=== PATIENT | female | born 1970 | race Caucasian/White ===

== ENCOUNTER 2017-06-21 21:45 | Emergency (ER) | payer BC ==
[~2017-06-21] VITALS: Ht 165.1 cm; Wt 89.7 kg
[~2017-06-21 21:45] MED LIST: ALEVE220 MG PO; EFFEXOR XR150 MG PO; Ecotrin PO; FLEXERIL10 MG PO; LORTAB 5-325 M1 EACH PO; TYLENOL REGULA325 MG PO; Vicodin,Norco 5/325 PO; WELLBUTRIN XL150 MG PO
[2017-06-21 22:54] LABS: MCH 31.1 PG (29.0-34.0); MCHC 34.5 G/DL (30.0-36.0); MCV 90.1 FL (83-99); MEAN PLAT.VOLUME 9.7 uM^3 (9.5-12.4); PLATELET COUNT 226 K/uL (156-360); RBC DIS.WIDTH-CV 11.5 % (11.8-14.6); RBC DIS.WIDTH-SD 37.8 % (39-53); RED BLOOD COUNT 4.44 M/uL (3.80-5.20)
[2017-06-21 23:06] LABS: CHLORIDE 103 mEq/L (99-109); POTASSIUM 3.5 mEq/L (3.7-5.4); SODIUM 137 mEq/L (136-147)
[2017-06-21 23:08] LABS: GLUCOSE 104 mg/dL (70-99)
[2017-06-21 23:09] LABS: ANION GAP 9 MEQ/L (2-14)
[2017-06-21 23:10] LABS: TOTAL BILIRUBIN 0.4 mg/dL (0.0-1.0)
[2017-06-21 23:11] LABS: ALKALINE PHOSPHATASE 63 IU/L (3-129)
[2017-06-21 23:12] LABS: GFR ESTIMATE (CALCULATED) > 59 mL/min/
[2017-06-21 23:13] LABS: UREA NITROGEN (BUN) 15 mg/dL (9-23)
[2017-06-21 23:15] LABS: LIPASE 19 U/L (1.0-51.0)
[2017-06-21 23:27] LABS: ADD MIUA? YES; BILIRUBIN NEGATIVE; BLOOD MODERATE; COLOR YELLOW ((YELLOW)); GLUCOSE (STRIP) NEGATIVE; KETONES NEGATIVE; LEUKOCYTES NEGATIVE; NITRITE NEGATIVE; PROTEIN (STRIP) NEGATIVE; SPECIFIC GRAVITY 1.016 (1.000-1.030); UROBILINOGEN 0.2 MG/DL (0.2-1.0)
[2017-06-21 23:38] LABS: BACTERIA NONE SEEN /HPF; EPITHELIAL CELLS 4+ /HPF; HYALINE CASTS 0-5 /LPF; MUCUS 1+ /LPF; UCUL ADDED? NO; WHITE BLOOD CELLS 0-5 /HPF (0-5)
[2017-06-22] MEDS ORDERED: DULCOLAX5 MG PO (02:13)
[2017-06-22] MEDS ORDERED: PREPARATION H C51 GM PR (02:13)
[2017-06-22] MEDS ORDERED: ENDOCET 5-3251 EACH PO (02:13)
[2017-06-22 03:15] VITALS: BP 114/92
== END 2017-06-22 03:16 | disposition home or self-care (01) ==
LOC: EME 21:45
PROVIDERS: Emergency Medicine
DX: K64.8 Other hemorrhoids (principal); K52.9 Noninfective gastroenteritis and colitis, unspecified; R31.9 Hematuria, unspecified; K62.3 Rectal prolapse; G89.29 Other chronic pain; Z88.0 Allergy status to penicillin
CPT/HCPCS: 74177; 80053; 81003; 83605; 83690; 85027; 99281; 99284; J2270; J2405; J7030